=== PATIENT | female | born 1975 | race Two or more races ===

== ENCOUNTER 2019-04-08 16:31 | Emergency (ER) | payer OTHER ==
[~2019-04-08] VITALS: Ht 147.3 cm; Wt 83.0 kg
[2019-04-08] MEDS ORDERED: Neosporin Oint Ud Pkt TOP ONE (17:15)
[2019-04-08] MEDS ORDERED: Tetanus/Diptheria/Pertussis IM ONE (17:15)
[2019-04-08] MEDS ORDERED: Acetaminophen 500mg (ES) tab ORAL ONE (17:15)
[2019-04-08] MEDS ORDERED: Tylenol #3 tab (300mg/30mg) PO ONE (17:15)
--- NOTE | 2019-04-08 17:51 | NUR ---
ED Nurse Note:pt relates a piece of marble slab slid and hit the bakc of her left ankle/calf abrasion to back of ankle noted.
--- NOTE | 2019-04-08 18:01 | NUR ---
ED Nurse Note: meds well tolerated dressing applied to left lower leg by ged instructor
[2019-04-08] MEDS ORDERED: TYLENOL EXTRA500 MG ORAL (18:03)
[2019-04-08] MEDS ORDERED: BACITRACIN15 GM TOPIC (18:03)
[2019-04-08 18:23] VITALS: BP 116/69
--- NOTE | 2019-04-08 18:24 | NUR ---
ER DISCHARGE NOTE: Patient is cleared to be discharged per ERMD, pt is aox4, on room air, with stable vital signs. pt was given dc and prescription instructions, pt was able to verbalize understanding, pt id band and iv site removed without complications. pt is able to ambulate with steady gait. pt took all belongings.
--- NOTE | 2019-04-08 18:53 | Diagnostic Imaging Report ---
EXAM: XR Left Tibia and Fibula, 2 Views CLINICAL HISTORY: PAIN TECHNIQUE: Frontal and lateral views of the left tibia and fibula. COMPARISON: No relevant prior studies available. FINDINGS: Bones/joints: No acute fracture or malalignment. Soft tissues: Unremarkable. No radiopaque foreign body. IMPRESSION: No acute fracture or malalignment.
--- NOTE | 2019-04-08 19:43 | Emergency Room Report ---
History of Present Illness General Chief Complaint: Lower Extremity Injury Source: Patient, Family Member Present Illness HPI 44-year-old female presents to ED for evaluation. States that at work a marble table fell and hit her in the back of the left leg. Notes an abrasion to her posterior left calf. Tetanus unknown. Denies falling. Denies any other injuries. Pain is dull, 5 out of 10, nonradiating. Notes pain but is able to bear weight. No other aggravating relieving factors. Denies any other associated symptoms Allergies: Coded Allergies: No Known Allergies (Unverified , 04/08/19) Patient History Past Medical History: none Past Surgical History: none Pertinent Family History: none Social History: Denies: smoking, alcohol use, drug use Last Menstrual Period: unk Now: No Immunizations: UTD Reviewed Nursing Documentation: PMH: Agreed; PSxH: Agreed Nursing Documentation-PMH Past Medical History: No Stated History Review of Systems All Other Systems: negative except mentioned in HPI Physical Exam Vital Signs Date Time Temp Pulse Resp B/P (MAP) Pulse Ox O2 Delivery O2 Flow Rate FiO2 04/08/19 16:45 98.1 67 20 116/69 (85) 98 Room Air Sp02 EP Interpretation: reviewed, normal General Appearance: no apparent distress, alert, GCS 15, non-toxic Head: normocephalic Eyes: bilateral eye normal inspection, bilateral eye PERRL ENT: normal ENT inspection Neck: normal inspection Respiratory: normal inspection Cardiovascular #1: normal inspection Gastrointestinal: normal inspection Rectal: deferred Genitourinary: no CVA tenderness Musculoskeletal: other - abrasion to L posterior calf, tender Neurologic: alert, oriented x3, responsive, motor strength/tone normal, sensory intact, speech normal Psychiatric: normal inspection Skin: abrasion Lymphatic: normal inspection Medical Decision Making Diagnostic Impression: Primary Impression: Abrasion of leg Qualified Codes: S80.812A - Abrasion, left lower leg, initial encounter Additional Impression: Contusion of leg Qualified Codes: S80.12XA - Contusion of left lower leg, initial encounter ER Course Hospital Course 44 yo F presents to ED c/o abrasion and pain to L calf. Differential diagnoses include: Fracture, dislocation, sprain, contusion Clinical course Patient placed on stretcher. After initial history and physical, I ordered pain medications, TDAP and Xrays of L tibfib Xrays read shows no acute fracture/dislocation. Trace/dressing applied. Discussed findings with patient. Safe for discharge for close outpatient follow -up. Will provide referrals Diagnosis - abrasion of leg, leg contusion Stable and discharged to home with prescription for tylenol, bacitracin. apply ice, keep elevated. weight bear as tolerated. Followup with PMD. Return to ED if symptoms recur or worsen Other X-Ray Diagnostic Results Other X-Ray Diagnostic Results : X-Ray ordered: L tibfib # of Views/Limited Vs Complete: 2 View Indication: Pain EP Interpretation: Yes Interpretation: no dislocation, no soft tissue swelling, no fractures Impression: No acute disease Electronically Signed by: Electronically signed by Kyrie Gamez MD Last Vital Signs Date Time Temp Pulse Resp B/P (MAP) Pulse Ox O2 Delivery O2 Flow Rate FiO2 04/08/19 18:23 98.0 20 116/69 98 Room Air 04/08/19 16:45 67 Status: improved Disposition: HOME, SELF-CARE Condition: Stable Scripts Bacitracin (Bacitracin) 28.4 Gm Oint...g. 1 APPLIC TOPIC THREE TIMES A DAY, #28.4 GM Prov: Kyrie Gamez MD 04/08/19 Acetaminophen* (TYLENOL EXTRA STRENGTH*) 500 Mg Tablet 500 MG ORAL Q8H PRN for Prn Headache/Temp > 101, #30 TAB 0 Refills Prov: Kyrie Gamez MD 04/08/19 Referrals: NOT CHOSEN IPA/,REFERRING (PCP) [facility] Departure Forms: Return to Work Return to Work Date: Apr 10, 2019 Work Restrictions: No Prolonged Standing Patient Instructions: Abrasion, [id number] Kyrie Gamez MD Apr 08, 2019 19:42
== END 2019-04-08 18:24 | disposition home or self-care (01) ==
LOC: EMR 17:10
DX: S80.812A Abrasion, left lower leg, initial encounter (principal); S80.12XA Contusion of left lower leg, initial encounter; W22.8XXA Striking against or struck by other objects, initial encounter; Y92.9 Unspecified place or not applicable; Z23 Encounter for immunization
CPT/HCPCS: 90471; 90715; 99283